=== PATIENT | male | born 1960 | race Caucasian/White ===

== ENCOUNTER 2022-08-21 01:57 | Day surgery (SDC) | payer SELFPAY ==
[2022-08-03 08:49] VITALS: BMI 27.1
--- NOTE | 2022-08-21 09:13 | P.PNAN_ITS ---
Anes - Initial Pre Proc Eval Procedure: Operation Date: 08/21/22 10:15 Proposed Procedures p Screening Colonoscopy - Michael Koenig MD Date/Time: 08/21/22 09:13 Surgeon: Michael Koenig MD Pre Op Diagnosis: hx colon polyps Patient Data Age: 61 Gender: M Height: 1.83 m Weight: 90.8 kg Allergies Allergy/AdvReac Type Severity Reaction Status Date / Time No Known Allergies Allergy Verified 08/21/22 09:17 Patient hx anesthesia problems: none Family hx anesthesia problems: none Results Review: All pre-operative results and documents have been reviewed as part of the pre- operative evaluation. [facility] Social History Social History Smoking status: Never smoker Alcohol intake: current Drinks per week: 5 Alcohol use details: 5-6 drinks on some weekends Substance use: never Substance use type: does not use Living arrangements: with family Spiritual care concerns: No Anes - Eval Final PreProcedure Day of Procedure 08/21/22 09:13 Patient weight: obese Heart: regular rate and rhythm Lungs: clear to auscultation Airway: Mallampati scale class II Neurological: alert and oriented Last oral intake: >/= 8 hours ASA classification: II Emergent: no Anesthetic plan: proceed Anesthesia type and monitoring: general GIVS and standard monitoring Results Review: All pre-operative results and documents have been reviewed as part of the pre- operative evaluation. Informed Consent: The patient's anesthetic plan and its attendant risks and benefits were discussed with the patient/family/POA. Questions were solicited and answers provided to the satisfaction of the patient/family/POA.
[2022-08-21 09:19] VITALS: BP 145/112; PULSE 90; RESP 20; TEMP 36.6; O2SAT 98; BMI 26.4
[2022-08-21] MEDS: LACTATED RINGERS 1,000 ML 150 ML IV CONT (09:21)
[2022-08-21 09:57] VITALS: BP 129/87; PULSE 84; RESP 20; O2SAT 99
--- NOTE | 2022-08-21 09:57 | PM.HPGS ---
History of Present Illness History of Present Illness Consent: Risks, benefits, and alternatives have been discussed and questions answered. Patient agrees to proceed with procedure. Chief complaint: hx colon polyps Narrative: David Gonzalez is a 61 year old male presents for screening colonoscopy. Patient's family history is significant for colon polyps. Patient most recent colonoscopy 8 or 9 years ago was unremarkable. He presents today for follow-up examination. Patient is weight appetite and bowel movements are normal. Patient denies abdominal pain. He has had no bleeding. Patient reports a sibling had colon polyps. Review of Systems Review of Systems: Review of systems Is noncontributory. [facility] Social History Social History Smoking status: Never smoker Alcohol intake: current Drinks per week: 5 Alcohol use details: 5-6 drinks on some weekends Substance use: never Substance use type: does not use Living arrangements: with family Spiritual care concerns: No Meds Home Medications and Allergies Allergies Allergy/AdvReac Type Severity Reaction Status Date / Time No Known Allergies Allergy Verified 08/21/22 09:17 Vital Signs Vital Signs - 24 hr 08/21/22 09:19 Temperature 98 F Pulse Rate 90 Respiratory Rate 20 Blood Pressure 145/112 H Pulse Oximetry 98 Oxygen Delivery Room Air Exam Narrative: Physical exam reveals chelsea be alert. Vital signs stable. HEENT exam is unremarkable. Patient is anicteric. Lungs are clear to auscultation and percussion. Heart is without murmur or extra sounds. Abdomen bowel sounds are present soft nontender with no organomegaly. Digital external rectal exam is normal. Assessment and Plan Assessment and plan (1) Encounter for screening colonoscopy: Code(s): Z12.11 - Encounter for screening for malignant neoplasm of colon Status: Acute Assessment and Plan: Patient presents for screening colonoscopy. His family history is significant for 1 sibling that had polyps he has a large family. Patient has no symptoms at present plan for screening.
[2022-08-21 10:07] VITALS: BP 128/82; PULSE 84; RESP 18; O2SAT 97
[2022-08-21 10:17] VITALS: BP 126/81; PULSE 76; RESP 23; O2SAT 97
== END 2022-08-21 10:26 | disposition home or self-care (01) ==
PROVIDERS: Visit Provider Internal Medicine Gastroenterology
PROC: 0DJD8ZZ Inspection of Lower Intestinal Tract, Via Natural or Artificial Opening Endoscopic (ICD-10-PCS; CPT 45378; principal; 2022-08-21 10:15)
DX: Z12.11 Encounter for screening for malignant neoplasm of colon (principal); Z86.010 Personal history of colon polyps; K64.8 Other hemorrhoids; K57.30 Diverticulosis of large intestine without perforation or abscess without bleeding
CPT/HCPCS: 45378; J2704; J7120